=== PATIENT | female | born 1985 | race American Indian/Alaskan Native ===

== ENCOUNTER 2016-12-08 22:56 | Emergency (ER) | payer SELFPAY ==
[2016-12-09 00:18] VITALS: BP 105/61
[2016-12-09 00:51] LABS: Basophils % (Auto) 0.5 % (0.0-1.8); Eosinophils % (Auto) 1.6 % (0.0-4.3); Hematocrit 39.5 % (30.3-42.9); Hemoglobin 12.3 gm/dl (10.1-14.3); Mean Corpuscular HGB Conc 31 % (30-34); Mean Corpuscular Hemoglobin 27 pg (28-32); Mean Corpuscular Volume 88 fl (79-97); Platelet Count 262 K/mm3 (140-440); Red Blood Count 4.51 M/mm3 (3.65-5.03); White Blood Count 6.9 K/mm3 (4.5-11.0)
[2016-12-09 01:56] LABS: Bacteria,Urine 1+ /HPF (Negative); Bilirubin,Urine NEG (Negative); Blood,Urine NEG (Negative); Ketones,Urine NEG (Negative); Leukocyte Esterase,Urine LG (Negative); Mucus,Urine 3+ /HPF; Nitrite,Urine NEG (Negative); Protein,Urine <15 mg/dL mg/dL (Negative); Urobilinogen,Urine < 2.0 mg/dL (<2.0)
--- NOTE | 2016-12-09 19:32 | ED Elopement Review ---
ED Pt Elopement review - Results review Lab results: Laboratory Tests 12/09/16 12/09/16 12/09/16 00:30 00:32 00:32 WBC 6.9 RBC 4.51 Hgb 12.3 Hct 39.5 MCV 88 MCH 27 L MCHC 31 RDW 14.0 Plt Count 262 Lymph % (Auto) 41.2 H Hayes % (Auto) 6.0 Eos % (Auto) 1.6 Baso % (Auto) 0.5 Lymph # 2.9 Hayes # 0.4 Eos # 0.1 Baso # 0.0 Seg Neutrophils % 50.7 Seg Neutrophils # 3.5 HCG, Quant < 2 Urine Color Urine Turbidity Urine pH Ur Specific [place] Urine Protein Urine Glucose (UA) Urine Ketones Urine Blood Urine Nitrite Urine Bilirubin Urine Urobilinogen Ur Leukocyte Esterase Urine WBC (Auto) Urine RBC (Auto) U Epithel Cells (Auto) Urine Bacteria (Auto) Urine Mucus Blood Type A POSITIVE Antibody Screen Negative 12/09/16 Unknown WBC RBC Hgb Hct MCV MCH MCHC RDW Plt Count Lymph % (Auto) Hayes % (Auto) Eos % (Auto) Baso % (Auto) Lymph # Hayes # Eos # Baso # Seg Neutrophils % Seg Neutrophils # HCG, Quant Urine Color Yellow Urine Turbidity Cloudy Urine pH 6.0 Ur Specific [place] 1.020 Urine Protein <15 mg/dl Urine Glucose (UA) Neg Urine Ketones Neg Urine Blood Neg Urine Nitrite Neg Urine Bilirubin Neg Urine Urobilinogen < 2.0 Ur Leukocyte Esterase Lg Urine WBC (Auto) 85.0 H Urine RBC (Auto) 10.0 U Epithel Cells (Auto) 10.0 Urine Bacteria (Auto) 1+ Urine Mucus 3+ Blood Type Antibody Screen - Call Back decision Pt Call Back Decision: Pt to F/U with PMD (elevated wbc in urine could be due to UTI vs vaginal infection, needs exam and eval)
== END 2016-12-09 01:00 | disposition left against medical advice (07) ==
LOC: ED 22:56
DX: N89.8 Other specified noninflammatory disorders of vagina (principal); Z53.21 Procedure and treatment not carried out due to patient leaving prior to being seen by health care provider
CPT/HCPCS: 36415; 81001; 84702; 85025; 86850; 86900; 86901

== ENCOUNTER 2016-12-12 08:12 | Emergency (ER) | payer OTHER ==
[2016-12-12 08:25] VITALS: BP 115/72
[2016-12-12 08:48] LABS: Bilirubin,Urine NEG (Negative); Blood,Urine NEG (Negative); Ketones,Urine NEG (Negative); Leukocyte Esterase,Urine LG (Negative); Mucus,Urine 3+ /HPF; Nitrite,Urine NEG (Negative); Protein,Urine <15 mg/dL mg/dL (Negative); Urobilinogen,Urine < 2.0 mg/dL (<2.0)
[2016-12-12] MEDS ORDERED: ZITHROMAX PO ONE (10:49)
[2016-12-12] MEDS ORDERED: XYLOCAINE 1% MPF 5 mL INFILTRATI ONE (10:50)
[2016-12-12] MEDS ORDERED: ROCEPHIN IM ONE (10:50)
--- NOTE | 2016-12-12 11:36 | Emergency Department Report ---
ED Female HPI - General Chief complaint: Urogenital-Female Stated complaint: PELVIC/BACK PAIN Time Seen by Provider: 12/12/16 10:04 Source: patient Mode of arrival: Ambulatory Limitations: No Limitations - History of Present Illness Initial comments: 31 y/o female complain of vaginal discharge ,pelvic pain and frequent urination x 2 weeks . MD Complaint: vaginal discharge, dysuria, pelvic pain Onset/Timin -: week(s) Severity: mild Severity scale (0 -10): 4 Quality: aching Consistency: intermittent Improves with: none Worsens with: urination, intercourse Are you Now?: No - Related Data Home Medications Medication Instructions Recorded Confirmed Last Taken No Known Home Medications [No 12/12/16 12/12/16 Unknown Reported Home Medications] Allergies Allergy/AdvReac Type Severity Reaction Status Date / Time sulfamethoxazole Allergy Itching Verified 12/12/16 08:20 [From Bactrim] trimethoprim [From Bactrim] Allergy Itching Verified 12/12/16 08:20 ED Review of Systems ROS: Stated complaint: PELVIC/BACK PAIN Other details as noted in HPI Constitutional: denies: chills, fever Eyes: denies: eye pain, eye discharge, vision change ENT: denies: ear pain, throat pain Respiratory: denies: cough, shortness of breath, wheezing Cardiovascular: denies: chest pain, palpitations Endocrine: no symptoms reported Gastrointestinal: abdominal pain. denies: nausea, diarrhea Genitourinary: dysuria, discharge. denies: urgency Musculoskeletal: denies: back pain, joint swelling, arthralgia Skin: denies: rash, lesions Neurological: denies: headache, weakness, paresthesias Psychiatric: denies: anxiety, depression Hematological/Lymphatic: denies: easy bleeding, easy bruising ED Past Medical Hx - Past Medical History Previous Medical History?: No - Surgical History Additional Surgical History: tubal ligation, cyst right ovary removed - Social History Smoking Status: Never Smoker Substance Use Type: None - Medications Home Medications: Home Medications Medication Instructions Recorded Confirmed Last Taken Type No Known Home Medications [No 12/12/16 12/12/16 Unknown History Reported Home Medications] ED Physical Exam - General Limitations: No Limitations General appearance: alert, in no apparent distress - Head Head exam: Present: atraumatic, normocephalic - Eye Eye exam: Present: normal appearance - ENT ENT exam: Present: mucous membranes moist - Neck Neck exam: Present: normal inspection - Respiratory Respiratory exam: Present: normal lung sounds bilaterally. Absent: respiratory distress - Cardiovascular Cardiovascular Exam: Present: regular rate, normal rhythm. Absent: systolic murmur, diastolic murmur, rubs, gallop - GI/Abdominal GI/Abdominal exam: Present: soft, normal bowel sounds - External exam: Present: normal external exam Speculum exam: Present: vaginal discharge, cervical discharge Bi-manual exam: Present: normal bi-manual exam - Extremities Exam Extremities exam: Present: normal inspection - Back Exam Back exam: Present: normal inspection - Neurological Exam Neurological exam: Present: alert, oriented X3 - Psychiatric Psychiatric exam: Present: normal affect, normal mood - Skin Skin exam: Present: warm, dry, intact, normal color. Absent: rash ED Course Vital Signs 12/12/16 08:20 Temperature 98.3 F Pulse Rate 73 Respiratory 18 Rate Blood Pressure 115/72 O2 Sat by Pulse 100 Oximetry ED Medical Decision Making - Radiology Data 1. Urinary tract infection 2. Patient was empirically treated for gonorrhea chlamydia based on pelvic examination of greenish discharge 3. bacterial vaginosis rate against 20% clue cells seen on wet prep 4. Trichomonas moderate Trichomonas seen on wet prep 5.Cervicitis: many polymorphonuclear cells seen on Critical care attestation.: If time is entered above; I have spent that time in minutes in the direct care of this critically ill patient, excluding procedure time. ED Disposition Clinical Impression: Bacterial vaginosis, Trichomonas exposure, Gonorrhea, Chlamydia Urinary tract infection Qualifiers: Urinary tract infection type: site unspecified Hematuria presence: without hematuria Qualified Code(s): N39.0 - Urinary tract infection, site not specified Disposition: DISCHARGED TO HOME OR SELFCARE Is pt being admited?: No Does the pt Need Aspirin: No Condition: Stable Instructions: Urinary Tract Infection in Women (ED), Bacterial Vaginosis (ED), Chlamydia Infection (ED), Trichomoniasis (ED) Additional Instructions: please follow in the health department for further testing of Hiv, syphilis and herpes Referrals: PRIMARY CARE [Primary Care Provider] - 3-5 Days [facility] [Outside] - 3-5 Days Forms: STI Treatment and Prevention, Work/School Release Form(ED) Time of Disposition: 11:40
== END 2016-12-12 11:59 | disposition home or self-care (01) ==
LOC: ED 08:12
DX: N76.0 Acute vaginitis (principal); B96.89 Other specified bacterial agents as the cause of diseases classified elsewhere; A59.9 Trichomoniasis, unspecified; A54.9 Gonococcal infection, unspecified; A74.9 Chlamydial infection, unspecified; N39.0 Urinary tract infection, site not specified; Z88.2 Allergy status to sulfonamides
CPT/HCPCS: 81001; 87210; 87591; 96372; 99284; J0696